=== PATIENT | female | born 1955 | race Caucasian/White ===

== ENCOUNTER → 2016-07-25 17:11 | Outpatient (CLI) | payer BC ==
[2011-04-01 06:41] VITALS: BMI 29.2
== END | disposition home or self-care (01) ==
LOC: D.MAMMO 15:45
DX: Z12.31 Encounter for screening mammogram for malignant neoplasm of breast (principal)

== ENCOUNTER 2018-03-20 08:00 | Outpatient (CLI) | payer BC ==
[2011-04-01 06:41] VITALS: BMI 29.2
== END 2018-03-20 08:01 | disposition home or self-care (01) ==
LOC: D.MAMMO 08:00
DX: Z12.31 Encounter for screening mammogram for malignant neoplasm of breast (principal)

== ENCOUNTER 2019-05-20 09:00 | Outpatient (CLI) | payer BC ==
[2011-04-01 06:41] VITALS: BMI 29.2
== END 2019-05-20 10:00 | disposition home or self-care (01) ==
LOC: D.MAMMO 09:00
PROVIDERS: ATTEND Emergency Medicine
DX: Z12.31 Encounter for screening mammogram for malignant neoplasm of breast (principal)